=== PATIENT | female | born 1995 | race Caucasian/White ===

== ENCOUNTER → 2020-04-11 | Outpatient (CLI) | payer OTHER ==
--- NOTE | 2020-04-11 15:28 | US ---
EXAMINATION TYPE: Transabdominal DATE OF EXAM: 04/11/2020 1:49 PM COMPARISON: NONE CLINICAL HISTORY: O36.80X0 UNKNOWN VIABILITY. Unknown dates EXAM PERFORMED: Transabdominal (TA) EXAM MEASUREMENTS: GESTATIONAL AGE / DATING Physician Established: Not yet established Dates by LMP: (9 weeks/1 days) EDC: 11/13/2020 Dates by First Scan: No previous this is first scan Dates by Current Scan for: (9 weeks/6 days) EDC: 11/08/2020 MATERNAL ANATOMY Uterus: 10.8 x 5.3 x 7.2 cm Right Ovary: 3.4 x 1.5 x 1.5 cm Left Ovary: 3.7 x 2.9 x 2.5 cm Post CDS / Adnexa: wnl Presence of free fluid: no Presence of corpus luteal cyst: no Presence of subchorionic bleed: no GESTATION / SURVEY CRL: 3.0 cm (9 weeks/6 days) Yolk Sac (normal less than 6mm): 4mm Heart Rate: 169 bpm Rhythm: Normal IUP: Viable IUP Date of LMP: 02/07/2020 Beta HcG (if available): Not available at this time Viable IUP with an RICHAR of 11/14/2019 by this exam IMPRESSION: 1. Single intrauterine gestation estimated at 9 weeks 6 days gestation based on the crown-rump length . Cardiac activity measures 169 bpm.
== END | disposition home or self-care (01) ==
LOC: RADUSWWP 13:29
PROVIDERS: ATTEND Obstetrics & Gynecology
DX: O36.80X0 Pregnancy with inconclusive fetal viability, not applicable or unspecified (principal); Z3A.09 9 weeks gestation of pregnancy
CPT/HCPCS: 76801